=== PATIENT | female | born 1970 | race American Indian/Alaskan Native ===

== ENCOUNTER 2021-09-25 02:43 | Emergency (ER) | payer SELFPAY ==
[2021-09-25 02:53] VITALS: BP 140/83
[2021-09-25] MEDS ORDERED: BUTALB/ACETAMINOPHEN/CAFFEINE TAB PO ONE (04:18)
[2021-09-25] MEDS ORDERED: IBUPROFEN 600 MG TAB PO ONE (04:19)
[2021-09-25] MEDS ORDERED: SODIUM CHLORIDE 0.9% 1000 ML 1,000 ML IV ONE (07:34)
--- NOTE | 2021-09-25 07:34 | Emergency Department Report ---
ED Head Trauma HPI - General Chief complaint: Head Injury Stated complaint: SYNCOPAL EPISODE Time Seen by Provider: 09/25/21 07:09 Source: patient Mode of arrival: Ambulatory Limitations: No Limitations - History of Present Illness Initial comments: 50-year-old female who denies any significant past medical history presents to the ER today with complaints of head injury and syncope. Patient states that around 415pm yesterday she was at her doctor's office for routine follow-up. She states that she was about to sit on the stool, when the stool rolled from underneath her causing her to fall backwards. She states that she struck the left occipital aspect of her head. She stated that she lost consciousness LOC she did notice some swelling to the back of her head where she struck it. She states that after the injury she continued with her day, went back to work but last night was standing cooking dinner she passed out. She is unsure of how l faviola she was out for. She states that she before passing out she felt nauseous, started feeling fullness in her ear and felt dizzy. She states that she had no chest pain or shortness of breath. She reports no focal facial or extremity weakness. She denies any fever or chills or any additional symptoms at this time. MD Complaint: head injury, other (syncope) -: Sudden - Related Data Allergies/Adverse reactions: Allergies Allergy/AdvReac Type Severity Reaction Status Date / Time No Known Allergies Allergy Unverified 09/25/21 02:51 ED Review of Systems ROS: Stated complaint: SYNCOPAL EPISODE Other details as noted in HPI Comment: All other systems reviewed and negative Constitutional: denies: chills, fever Eyes: denies: eye pain, eye discharge, vision change ENT: denies: ear pain, throat pain, dental pain, hearing loss, epistaxis, congestion Respiratory: denies: cough, shortness of breath, SOB with exertion, SOB at rest, wheezing Cardiovascular: denies: chest pain, palpitations Gastrointestinal: denies: abdominal pain, nausea, diarrhea, constipation, hematemesis, melena, hematochezia Genitourinary: denies: urgency, dysuria, frequency, hematuria, discharge, abnormal menses, dyspareunia Musculoskeletal: denies: back pain, joint swelling, arthralgia, myalgia Skin: denies: rash, lesions Neurological: headache, other (Dizzy). denies: weakness, paresthesias Psychiatric: denies: auditory hallucinations, visual hallucinations, homicidal thoughts, suicidal thoughts Hematological/Lymphatic: denies: easy bleeding, easy bruising, swollen glands ED Past Medical Hx - Past Medical History Previous Medical History?: No - Surgical History Past Surgical History?: No ED Physical Exam - General Limitations: No Limitations General appearance: alert, in no apparent distress - Head Head exam: Present: normocephalic, normal inspection, other (Mild tenderness to left occipital area but no apparent hematoma, deformity, crepitus or swelling noted.) - Eye Eye exam: Present: normal appearance, PERRL, EOMI Pupils: Present: normal accommodation - ENT ENT exam: Present: normal exam, mucous membranes moist - Neck Neck exam: Present: normal inspection, full ROM. Absent: tenderness - Respiratory Respiratory exam: Present: normal lung sounds bilaterally. Absent: respiratory distress, wheezes, rales, rhonchi - Cardiovascular Cardiovascular Exam: Present: regular rate, normal rhythm, normal heart sounds - Neurological Exam Neurological exam: Present: alert, oriented X3, CN II-XII intact, normal gait - Psychiatric Psychiatric exam: Present: normal affect, normal mood - Skin Skin exam: Present: intact ED Course Vital Signs 09/25/21 09/25/21 09/25/21 02:51 04:37 04:38 Temperature 97.9 F Pulse Rate 87 Respiratory 20 18 18 Rate Blood Pressure 140/83 [Left] O2 Sat by Pulse 100 Oximetry 09/25/21 10:35 Temperature Pulse Rate 68 Respiratory Rate Blood Pressure [Left] O2 Sat by Pulse 100 Oximetry - Lab Data Result diagrams: 09/25/21 08:15 09/25/21 08:15 Lab Results 09/25/21 09/25/21 09/25/21 Range/Units 08:15 08:15 08:15 WBC 7.3 (4.5-11.0) K/mm3 RBC 4.18 (3.65-5.03) M/mm3 Hgb 12.2 (10.1-14.3) gm/dl Hct 38.6 (30.3-42.9) % MCV 92 (79-97) fl MCH 29 (28-32) pg MCHC 32 (30-34) % RDW 13.8 (13.2-15.2) % Plt Count 340 (140-440) K/mm3 Lymph % (Auto) 46.8 H (13.4-35.0) % [place] % (Auto) 6.2 (0.0-7.3) % Eos % (Auto) 2.5 (0.0-4.3) % Baso % (Auto) 0.4 (0.0-1.8) % Lymph # (Auto) 3.4 (1.2-5.4) K/mm3 [place] # (Auto) 0.5 (0.0-0.8) K/mm3 Eos # (Auto) 0.2 (0.0-0.4) K/mm3 Baso # (Auto) 0.0 (0.0-0.1) K/mm3 Seg Neutrophils % 44.1 (40.0-70.0) % Seg Neutrophils # 3.2 (1.8-7.7) K/mm3 Sodium 142 (137-145) mmol/L Potassium 4.0 (3.6-5.0) mmol/L Chloride 103.7 (98-107) mmol/L Carbon Dioxide 25 (22-30) mmol/L Anion Gap 17 mmol/L BUN 12 (7-17) mg/dL Creatinine 0.7 (0.6-1.2) mg/dL Estimated GFR > 60 ml/min BUN/Creatinine Ratio 17 % Glucose 116 H (65-100) mg/dL Calcium 9.1 (8.4-10.2) mg/dL Total Bilirubin 0.40 (0.1-1.2) mg/dL AST 14 (5-40) units/L ALT 17 (7-56) units/L Alkaline Phosphatase 108 (35-129) units/L Troponin T < 0.010 (0.00-0.029) ng/mL Total Protein 7.8 (6.3-8.2) g/dL Albumin 4.4 (3.9-5) g/dL Albumin/Globulin Ratio 1.3 % HCG, Qual Negative (Negative) - EKG Data EKG shows normal: sinus rhythm Rate: normal (67) Interpretation: normal EKG - Radiology Data Radiology results: report reviewed CT head shows no acute abnormality. CT cervical spine shows nothing acute. - Medical Decision Making Head CT shows nothing acute. Cervical spine CT shows nothing acute. All labs reviewed reviewed and stable including negative troponin. EKG shows normal sinus rhythm without any STEMI or significant dysrhythmias. She is not toxic or ill-appearing. Patient is currently awake alert oriented x3 with a GCS of 15. She is neurologically intact. She has been observed talking on the phone with her significant other. He ambulates well with a no rmal gait. Vital signs have been stable. She is hemodynamically stable. Discussed all results with patient. At this time I do not suspect any other significant intracranial abnormality, unstable angina, PE, infection/sepsis or any other acute emergent conditions warranting additional testing, admission, specialist consult at this time. Discussed all clinical impressions with patient and recommend close follow-up with her PCP as well as neurology. Patient expressed understanding for instructions and agree with plan. Patient was stable at time of discharge. Critical care attestation.: If time is entered above; I have spent that time in minutes in the direct care of this critically ill patient, excluding procedure time. ED Disposition Clinical Impression: Syncope, Concussion Disposition: HOME / SELF CARE / HOMELESS Is pt being admited?: No Does the pt Need Aspirin: No Condition: Stable Instructions: Concussion, Adult, Syncope, [id number], Syncope (ED) Additional Instructions: I recommend taking Tylenol and ibuprofen as needed for pain. Recommend close f ollow-up with your primary care doctor and/or neurologist next week especially if symptoms persists. Return to the ER if at any point your symptoms worsens in any way. Referrals: VI DODSON MD [Staff Physician] - 3-5 Days [facility] [Provider Group] - 3-5 Days Forms: Work/School Release Form(ED) Time of Disposition: 10:13
[2021-09-25 08:50] LABS: Basophils % (Auto) 0.4 % (0.0-1.8); Eosinophils # (Auto) 0.2 K/mm3 (0.0-0.4); Eosinophils % (Auto) 2.5 % (0.0-4.3); Hematocrit 38.6 % (30.3-42.9); Hemoglobin 12.2 gm/dl (10.1-14.3); Lymphocytes # (Auto) 3.4 K/mm3 (1.2-5.4); Lymphocytes % (Auto) 46.8 % (13.4-35.0); Mean Corpuscular HGB Conc 32 % (30-34); Mean Corpuscular Volume 92 fl (79-97); Monocytes # (Auto) 0.5 K/mm3 (0.0-0.8); Monocytes % (Auto) 6.2 % (0.0-7.3); Platelet Count 340 K/mm3 (140-440); Red Blood Count 4.18 M/mm3 (3.65-5.03); Red Cell Distribution Width 13.8 % (13.2-15.2)
[2021-09-25 09:15] LABS: Alanine Aminotransferase 17 units/L (7-56); Albumin 4.4 g/dL (3.9-5); Blood Urea Nitrogen 12 mg/dL (7-17); Calcium 9.1 mg/dL (8.4-10.2); Hemolysis Index 1
[2021-09-25 09:21] LABS: BUN/Creatinine Ratio 17
--- NOTE | 2021-09-25 12:17 | Electrocardiograph Report ---
[facility] Test Date: 2021-09-25 Test Time: 07:46:43 Pat Name: TEE CHAUHAN Department: Room: Gender: F [employer] Operator: GLADIS : 1970 Requested By: LOLA NAZARIO Order Number: [id number] Reading MD: Ken Bell Measurements Intervals [place] Rate: 67 P: 61 ND: 156 QRS: 55 QRSD: 83 T: 32 QT: 456 QTc: 481 Interpretive Statements Sinus rhythm No previous ECG available for comparison Electronically Signed On 09-25-2021 12:16:57 EST by Ken Bell
--- NOTE | 2021-09-28 08:14 | Cat Scan Report ---
CT HEAD WITHOUT CONTRAST INDICATION / CLINICAL INFORMATION: CHAIR LEVEL FALL WITH LOC. TECHNIQUE: All CT scans at this location are performed using CT dose reduction for ALARA by means of automated exposure control. COMPARISON: None available. FINDINGS: HEMORRHAGE: None. EXTRA-AXIAL SPACES: Normal in size and morphology for the patient's age. VENTRICULAR SYSTEM: Normal in size and morphology for the patient's age. CEREBRAL PARENCHYMA: No significant abnormality. No acute territorial infarct. MIDLINE SHIFT / HERNIATION: None. CEREBELLUM / BRAINSTEM: No significant abnormality. ORBITS: Normal as visualized. SOFT TISSUES: No significant abnormality. SKULL: No significant abnormality. PARANASAL SINUSES / MASTOID AIR CELLS: Normal as visualized. ADDITIONAL FINDINGS: None. IMPRESSION: No acute intracranial abnormality. Signer Name: Aayush Espinal MD Signed: 09/25/2021 4:04 AM Workstation Name: [id number]
--- NOTE | 2021-09-28 08:14 | Cat Scan Report ---
CT CERVICAL SPINE WITHOUT CONTRAST INDICATION / CLINICAL INFORMATION: CHAIR LEVEL FALL WITH LOC. TECHNIQUE: Axial CT images were obtained through the cervical spine. Sagittal and coronal reformatted images were produced. All CT scans at this location are performed using CT dose reduction for ALARA by means of automated exposure control. COMPARISON: None available. FINDINGS: VERTEBRAE: No significant abnormality. ALIGNMENT: No significant abnormality. DISC SPACES: No significant abnormality. FACET JOINTS: No significant abnormality. CRANIOCERVICAL JUNCTION:No significant abnormality. SPINAL CANAL: No significant abnormality. PARASPINAL SOFT TISSUES: No significant abnormality. ADDITIONAL FINDINGS: There are mild degenerative changes involving the anterior atlantoaxial joint. LUNG APICES: No significant abnormality of visualized lungs. IMPRESSION: No acute abnormality. Signer Name: Aayush Espinal MD Signed: 09/25/2021 4:06 AM Workstation Name: [id number]
== END 2021-09-25 10:35 | disposition home or self-care (01) ==
LOC: ED 02:43
DX: S06.0X9A Concussion with loss of consciousness of unspecified duration, initial encounter (principal); R55 Syncope and collapse; W18.30XA Fall on same level, unspecified, initial encounter; Y93.89 Activity, other specified; Y92.89 Other specified places as the place of occurrence of the external cause; Y99.8 Other external cause status
CPT/HCPCS: 36415; 70450; 72125; 80053; 84484; 84703; 85025; 93005; 96360; 99284; J7030; Q0162